=== PATIENT | male | born 1955 | race African-American/Black ===

== ENCOUNTER 2017-02-12 02:35 | Emergency (ER) | payer OTHER ==
[2017-02-12 03:02] VITALS: BP 188/80
== END 2017-02-12 03:25 | disposition left against medical advice (07) ==
LOC: ER 02:35
DX: Z53.9 Procedure and treatment not carried out, unspecified reason (principal); I10 Essential (primary) hypertension; R68.84 Jaw pain

== ENCOUNTER 2017-02-17 20:11 | Emergency (ER) | payer OTHER ==
[2017-02-17] MEDS ORDERED: HYDROCODONE/ACETAMINOPHEN 5-325 MG TABLET PO ONE (21:18)
[2017-02-17] MEDS ORDERED: AMOXICILLIN TRIHYDRATE 500 MG CAPSULE PO ONE (21:18)
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
[2017-02-17 22:14] VITALS: BP 169/73
== END 2017-02-17 21:30 | disposition home or self-care (01) ==
LOC: ER 20:11
DX: K05.10 Chronic gingivitis, plaque induced (principal); K13.79 Other lesions of oral mucosa; E78.00 Pure hypercholesterolemia, unspecified; I10 Essential (primary) hypertension; K21.9 Gastro-esophageal reflux disease without esophagitis
CPT/HCPCS: 99282

== ENCOUNTER 2017-02-22 01:58 | Emergency (ER) | payer OTHER ==
[2017-02-22] MEDS ORDERED: PROCHLORPERAZINE EDISYLATE INJ 10 MG/2 ML VIAL IV ONE (02:58)
[2017-02-22] MEDS ORDERED: KETOROLAC TROMETHAMINE INJ/PF 30 MG/1 ML SDV IV ONE (02:58)
[2017-02-22] MEDS ORDERED: DIPHENHYDRAMINE HCL 50 MG/ML VIAL IV ONE (02:58)
--- NOTE | 2017-02-22 03:40 | ER Document Report ---
ED General - General Chief Complaint: Jaw Pain Stated Complaint: JAW PAIN Time Seen by Provider: 02/22/17 02:12 Notes: Patient is a 62-year-old male with past medical history of uncontrolled essential hypertension who presents with 8 or more years of chronic nightly facial pain. Patient states that the pain becomes most intense at night particular when he tries to lay down to go to sleep. He does describe it as a severe, searing pain to the right side of his face with associated excess lacrimation of the right eye and occasional ptosis the right eye. He denies unilateral diaphoresis. He denies any focal neurologic deficits. Nothing seems to improve or worsen the pain. He does note that intermittently develops the symptoms during the day but they do become much worse at night. He has not seen a neurologist regarding this concern and has not followed with his primary care doctor regarding this concern. He does nothing is new or different tonight that prompted him to come to the emergency department other than the pain became so severe he could not tolerate it any longer. He was recently seen here in the emergency department and prescribed penicillin and narcotic pain medications which he states have not helped. TRAVEL OUTSIDE OF THE [place] IN LAST 30 DAYS: No - Related Data Allergies/Adverse Reactions: No Known Allergies Allergy (Verified 02/17/17 20:30) Past Medical History - General Information source: Patient - Social History Smoking Status: Current Every Day Smoker Chew tobacco use (# tins/day): No Frequency of alcohol use: Occasional Drug Abuse: None Lives with: Spouse/Significant other Family History: Arthritis, CAD, Hyperlipidemia, Hypertension, Malignancy, Thyroid Disfunction Patient has suicidal ideation: No Patient has homicidal ideation: No - Past Medical History Cardiac Medical History: Reports: Hx Hypercholesterolemia, Hx Hypertension Pulmonary Medical History: Reports: Hx COPD Renal/ Medical History: Denies: Hx Peritoneal Dialysis GI Medical History: Reports: Hx Gastroesophageal Reflux Disease Musculoskeltal Medical History: Reports Hx Arthritis Psychiatric Medical History: Reports: Hx Depression - Immunizations Immunizations up to date: Yes Hx Diphtheria, Pertussis, Tetanus Vaccination: Yes Hx Pneumococcal Vaccination: 09/24/13 Review of Systems - Review of Systems Notes: Constitutional: Negative for fever. HENT: Negative for sore throat. Eyes: Negative for visual changes. Cardiovascular: Negative for chest pain. Respiratory: Negative for shortness of breath. Gastrointestinal: Negative for abdominal pain, vomiting or diarrhea. Genitourinary: Negative for dysuria. Musculoskeletal: Negative for back pain. Skin: Negative for rash. Neurological: Positive for right-sided facial pain and headache 10 point ROS negative except as marked above and in HPI. Physical Exam - Vital signs Vitals: Temp Pulse Resp BP Pulse Ox 98.2 F 66 18 239/78 H 99 02/22/17 02:25 02/22/17 02:25 02/22/17 02:25 02/22/17 02:25 02/22/17 02:25 Interpretation: Hypertensive Notes: PHYSICAL EXAMINATION: GENERAL: Appears uncomfortable but in no acute distress HEAD: Atraumatic, normocephalic. EYES: Pupils equal round and reactive to light, extraocular movements intact, sclera anicteric, conjunctiva are normal. ENT: nares patent, oropharynx clear without exudates. Moist mucous membranes. NECK: Normal range of motion, supple without lymphadenopathy LUNGS: Breath sounds clear to auscultation bilaterally and equal. No wheezes rales or rhonchi. HEART: Regular rate and rhythm without murmurs ABDOMEN: Soft, nontender, normoactive bowel sounds. No guarding, no rebound. No masses appreciated. EXTREMITIES: Normal range of motion, no pitting or edema. No cyanosis. NEUROLOGICAL: Face symmetric. Tongue protrudes midline. Extraocular motions intact. Pupils are 2 mm and equally reactive. Normal speech, normal gait. 5 out of 5 strength in both the distal and proximal upper and lower extremities bilaterally. Sensation is grossly intact throughout. Finger to nose testing normal. Pronator drift normal. PSYCH: Normal mood, normal affect. SKIN: Warm, Dry, normal turgor, no rashes or lesions noted. Course - Re-evaluation Re-evalutation: 02/22/17 03:34 Patient presents with years of pain along the right face. Diagnostic differential includes cluster headaches versus possible trigeminal neuralgia. Patient does not have any clinical exam findings to suggest that this is dental related he does not any significant facial swelling. No buccal mucosal inflammation. Airway is patent. IV was placed and a migraine cocktail was administered patient had near complete resolution of his symptoms. I have encouraged the patient to follow-up with a neurologist at his earliest ability as I do believe he would benefit from being started on a medication such as carbamazepine. At this time will discharge with return precautions and follow- up recommendations. Verbal discharge instructions given a the bedside and opportunity for questions given. Medication warnings reviewed. Patient is in agreement with this plan and has verbalized understanding of return precautions and the need for primary care follow-up in the next 24-72 hours. - Vital Signs Vital signs: Temp Pulse Resp BP Pulse Ox 98.2 F 66 18 239/78 H 99 02/22/17 02:25 02/22/17 02:25 02/22/17 02:25 02/22/17 02:25 02/22/17 02:25 Discharge - Discharge Clinical Impression: Right facial pain, Essential hypertension Condition: Good Disposition: HOME, SELF-CARE Additional Instructions: You may have either trigeminal neuralgia or cluster headaches. Your clinical history appears to suggest most likely a trigeminal neuralgia. You had improvement with medications that we gave you here in the emergency department. You have been sent home with a medication called Fioricet that you could try again if he developed this pain. However, it is very important that you follow- up with a neurologist as you may require chronic medications to prevent recurrence of this pain. Return if you develop worsening of your pain, weakness , numbness, fever, persistent vomiting, or any other symptoms that are worrisome to you. Prescriptions: Butalb/Acetaminophen/Caffeine [Fioricet (50-325-40 mg) Tablet] 1 tab PO Q4HP PRN #30 tab PRN Reason:
[2017-02-22 04:29] VITALS: BP 186/70
== END 2017-02-22 04:29 | disposition home or self-care (01) ==
LOC: ER 01:58
DX: R51 Headache (principal); I10 Essential (primary) hypertension; R68.84 Jaw pain; F17.200 Nicotine dependence, unspecified, uncomplicated
CPT/HCPCS: 99283; 96374; 96375; J1200; J1885; J0780

== ENCOUNTER 2017-03-05 01:52 | Emergency (ER) | payer OTHER ==
[2017-03-05] MEDS ORDERED: HYDROMORPHONE HCL INJ/PF 2 MG/ML AMPULE IV ONE ×2 (02:12→03:12)
[2017-03-05] MEDS ORDERED: DIPHENHYDRAMINE HCL 50 MG/ML VIAL IV ONE (02:14)
[2017-03-05] MEDS ORDERED: PROCHLORPERAZINE EDISYLATE INJ 10 MG/2 ML VIAL IM ONE (02:15)
[2017-03-05] MEDS ORDERED: KETOROLAC TROMETHAMINE INJ/PF 30 MG/1 ML SDV IV ONE (02:15)
--- NOTE | 2017-03-05 02:18 | ER Document Report ---
ED General - General Chief Complaint: Headache, Worst Ever Stated Complaint: HEADACHE Time Seen by Provider: 03/05/17 02:07 Notes: Patient is a 62-year-old male who presents with complaint of a headache. Might go evaluate the patient he says the pain section of his head is more along the right side of his face. He has apparently been having this pain almost every night for the last 6-8 years. No associated fevers. He says only occur at night. He has been seen here several times in the past. He says that his doctors referring him to a neurologist but has not yet had an appointment. He comes in tonight because the pain is very severe tonight. He is very hypertensive in triage. He says he takes metoprolol in the mornings. He says he did take his dose of metoprolol. He denies any focal weakness or numbness into extremities. Denies any recent trauma. He denies previous history of CT scans of his head. Denies any vomiting. No photophobia. No other complaints at this time. He does says that the pain is only over the right side of his face and is in the same location that it always is. Again the pain only occurs at night. TRAVEL OUTSIDE OF THE [place] IN LAST 30 DAYS: No - Related Data Allergies/Adverse Reactions: No Known Allergies Allergy (Verified 02/17/17 20:30) Past Medical History - Social History Smoking Status: Unknown if Ever Smoked Frequency of alcohol use: None Drug Abuse: None Family History: Arthritis, CAD, Hyperlipidemia, Hypertension, Malignancy, Thyroid Disfunction - Past Medical History Cardiac Medical History: Reports: Hx Hypercholesterolemia, Hx Hypertension Pulmonary Medical History: Reports: Hx COPD Renal/ Medical History: Denies: Hx Peritoneal Dialysis GI Medical History: Reports: Hx Gastroesophageal Reflux Disease Musculoskeltal Medical History: Reports Hx Arthritis Psychiatric Medical History: Reports: Hx Depression - Immunizations Immunizations up to date: Yes Hx Diphtheria, Pertussis, Tetanus Vaccination: Yes Hx Pneumococcal Vaccination: 09/24/13 Review of Systems - Review of Systems Notes: My Normal Review Basic REVIEW OF SYSTEMS: CONSTITUTIONAL : Denies fever, chills, or sweats. Denies recent illness. EENT: Denies eye, ear, throat, or mouth pain or symptoms. Denies nasal or sinus congestion. CARDIOVASCULAR: Denies chest pain. RESPIRATORY: Denies cough, cold, or chest congestion. Denies shortness of breath, difficulty breathing, or wheezing. GASTROINTESTINAL: Denies abdominal pain. Denies nausea, vomiting, or diarrhea. MUSCULOSKELETAL: Denies neck or back pain or joint pain or swelling. SKIN: Denies rash or skin lesions. NEUROLOGICAL: Denies altered mental status or loss of consciousness. Has right sided facial.. Denies weakness or paralysis or loss of use of either side. Denies problems with gait or speech. Denies sensory or motor loss. ALL OTHER SYSTEMS REVIEWED AND NEGATIVE. Physical Exam - Vital signs Vitals: Resp BP Pulse Ox 14 242/91 H 97 03/05/17 02:11 03/05/17 02:11 03/05/17 02:11 - Notes Notes: General Appearance: Well nourished, alert, cooperative, no acute distress, moderate to severe obvious discomfort. Vitals: reviewed, See vital signs table. Head: Patient is very sensitive with any attempt of touching the right side of his face. Eyes: PERRL, EOMI, Conjuctiva clear Mouth: No decreasd moisture Throat: No tonsillar inflammation, No airway obstruction, No lymphadenopathy Neck: Supple, no neck tenderness, Lungs: No wheezing, No rales, No rhonci, No accessory muscle use, good air exchange bilaterally. Heart: Normal rate, Regular rythm, No murmur, no rub Abdomen: Normal BS, soft, No rigidity, No abdominal tenderness, No guarding, no rebound, no abdominal masses, no organomegaly Extremities: strength 5/5 in all extremities, good pulses in all extremities, no swelling or tenderness in the extremities, no edema. Skin: warm, dry, appropriate color, no rash Neuro: speech clear, oriented x 3, normal affect, responds appropriately to questions. Cranial nerves II through XII are intact. Distal sensation intact. Patient was all extremities without difficulty. Course - Re-evaluation Re-evalutation: 03/05/17 05:36 Patient's written chief complaint is of a headache however on exam patient actually has right-sided facial pain that is consistent with trigeminal neuralgia. I did review his records and as he stated he has had this pain many times in the past. It always occurs at night. Patient says he has never had a CT scan of his head by his primary care doctor want to arrange for 1 to be performed. I went ahead did obtain that tonight so he did not have to wait longer and just to evaluate being that he has his history of this recurrent pain. CT scan is negative. I do not suspect subarachnoid hemorrhage or cerebral aneurysm being that this pain is consistently occurs every time at night and is always over the right side of face. This would not be consistent with the history of a subarachnoid hemorrhage. Patient has no fevers or signs of infection. I did give her medications which have resolved his pain. Also given dose of hydralazine being that his blood pressure is very high upon arrival. I did review his previous visits and his blood pressure is always between 170s and 220 systolically. Patient is on metoprolol twice a day. I feel that the patient probably needs additional medication to help better control of his blood pressure as him always having a blood pressure that high is not safe. He has no other symptoms of source was blood pressure. He has no chest pain shortness of breath. There is no focal weakness or numbness. He does not need admission for control of his blood pressure being that he is currently a symptomatically. I have added hydralazine to his regimen. I informed him the importance of him following up with his primary care doctor to inform him of the addition of his medication for reevaluation. Also will add gabapentin. I informed him I am starting him on a very low dose and that this will eventually need to be slowly titrated up. Patient is to follow-up with his primary care doctor and to follow-up with the neurology referral as well. Patient encouraged to return to ER if he has severe headache, worsening facial pain, vomiting, chest pain, difficulty breathing, or any focal weakness or numbness. Patient agrees with plan will be discharged home. Dictation of this chart was performed using voice recognition software; therefore, there may be some unintended grammatical errors. - Vital Signs Vital signs: Temp Pulse Resp BP Pulse Ox 22 H 226/68 H 94 03/05/17 04:04 03/05/17 04:21 03/05/17 04:21 Discharge - Discharge Clinical Impression: Facial pain Hypertension Qualifiers: Hypertension type: unspecified Qualified Code(s): I10 - Essential (primary) hypertension Additional Instructions: I suspect that you probably have Trigeminal neuralgia due to the recurrence of your right-sided facial pain and the location of it. This is an irritation of the nerve on the right side of your face. I will start you on a low dose of a medication called Gabapentin. This sometimes will help but it needs to be slowly titrated up. I have started you an a low dose, but you will need to follow up with your doctor to have the dose titrated up safely. When you see the neurologist he may continue this medication or switch you to a different medication that they may feel will work better for you. I have also noticed that over your last several visits your blood pressure is always very high and not well controlled. I am adding a new blood pressure medication to your regimen called Hydralazine. Please follow up with your doctor for reevaluation within 1 week and review with them these new medications I have added. Please return to the ER if you have recurrent worsening facial pain, severe headaches, vomiting, fevers weakness in your arms or legs, chest pain, difficulty breathing , or if you feel unwell. Prescriptions: Gabapentin 100 mg PO TID #45 capsule Hydralazine HCl 25 mg PO BID #30 tablet
--- NOTE | 2017-03-05 03:13 | RADIOLOGY REPORT (SQ) ---
EXAM DESCRIPTION: CT HEAD WITHOUT CLINICAL HISTORY: 62 years Male, headache, HTN COMPARISON: None. TECHNIQUE: This exam was performed according to our departmental dose-optimization program, which includes automated exposure control, adjustment of the mA and/or kV according to patient size and/or use of iterative reconstruction technique. Limitation: Positioning. FINDINGS: Mild cerebral volume loss. No evidence of mass, mass effect, or midline shift. Dural calcification and prominent tentorium cerebelli. Oblique positioning. No significant hemorrhage or infarct. Extra-axial structures appear otherwise grossly intact. IMPRESSION: No acute findings. Limitation.
[2017-03-05] MEDS ORDERED: HYDRALAZINE HCL INJ/PF 20 MG/1 ML SDV IV ONE (04:02)
[2017-03-05 05:56] VITALS: BP 168/83
== END 2017-03-05 05:53 | disposition home or self-care (01) ==
LOC: ER 01:52
DX: R51 Headache (principal); I10 Essential (primary) hypertension; E78.00 Pure hypercholesterolemia, unspecified; J44.9 Chronic obstructive pulmonary disease, unspecified; K21.9 Gastro-esophageal reflux disease without esophagitis
CPT/HCPCS: 99284; 96372; 96374; 96375; 70450; J1200; J0360; J1885; J1170; J0780

== ENCOUNTER → 2017-05-12 | Outpatient (CLI) | payer OTHER ==
--- NOTE | 2017-05-12 12:09 | RADIOLOGY REPORT (SQ) ---
EXAM DESCRIPTION: CHEST PA/LAT COMPLETED DATE/TIME: 05/12/2017 10:32 am REASON FOR STUDY: COUGH R05 COUGH COMPARISON: 03/27/2015 NUMBER OF VIEWS: Two view. TECHNIQUE: Frontal and lateral radiographic views of the chest acquired. LIMITATIONS: None. FINDINGS: LUNGS AND PLEURA: No opacities, masses or pneumothorax. No pleural effusion. Attenuated bl ood vessels and flattened gracieal-diaphragms. MEDIASTINUM AND HILAR STRUCTURES: No masses. No contour abnormalities. HEART AND VASCULAR STRUCTURES: Heart normal in size and contour. No evidence for failure. BONES: No acute findings. HARDWARE: None in the chest. OTHER: No other significant finding. IMPRESSION: COPD. NO ACUTE RADIOGRAPHIC FINDING IN THE CHEST. TECHNICAL DOCUMENTATION: JOB ID: [id number] [employer]- All Rights Reserved
== END ==
LOC: RAD 09:53
DX: R05 Cough (principal)
CPT/HCPCS: 71046

== ENCOUNTER → 2017-05-15 | Outpatient (CLI) | payer OTHER ==
[2017-05-15 11:08] LABS: ABSOLUTE EOSINOPHILS # (AUTO) 0.1 10^3/uL (0.0-0.6); ABSOLUTE LYMPHOCYTES (AUTO) 2.3 10^3/uL (0.5-4.7); ABSOLUTE MONOCYTES (AUTO) 0.6 10^3/uL (0.1-1.4); ABSOLUTE NEUT (AUTO) 3.1 10^3/uL (1.7-8.2); BASOPHILS % (AUTO) 0.8 % (0-2); EOSINOPHILS % (AUTO) 1.9 % (0-6); HEMOGLOBIN 14.2 g/dL (13.5-17.0); LYMPHOCYTES % (AUTO) 37.8 % (13-45); MEAN CORPUSCULAR HEMOGLOBIN 32.3 pg (27.0-33.4); MEAN CORPUSCULAR HGB CONC 33.9 g/dL (32.0-36.0); MEAN CORPUSCULAR VOLUME 95 fl (80-97); MONOCYTES % (AUTO) 9.1 % (3-13); PLATELET COUNT 225 10^3/uL (150-450); RED BLOOD COUNT 4.41 10^6/uL (4.35-5.55); RED CELL DISTRIBUTION WIDTH 13.8 % (11.5-14.0); SEGMENTED NEUTROPHILS % (AUTO) 50.4 % (42-78); TOTAL CELLS COUNTED % (AUTO) 100 %; WHITE BLOOD COUNT 6.1 10^3/uL (4.0-10.5)
[2017-05-15 11:50] LABS: ERYTHROCYTE SEDIMENTATION RATE 31 mm/hr (0-20)
[2017-05-15 11:56] LABS: ALANINE AMINOTRANSFERASE 20 U/L (21-72); ALBUMIN 4.3 g/dL (3.5-5.0); ALKALINE PHOSPHATASE 78 U/L (38-126); ANION GAP 9 (5-19); ASPARTATE AMINO TRANSFERASE 31 U/L (17-59); BILIRUBIN,DIRECT 0.2 mg/dL (0.0-0.4); BILIRUBIN,TOTAL 0.6 mg/dL (0.2-1.3); BLOOD UREA NITROGEN 12 mg/dL (7-20); CALCIUM 9.5 mg/dL (8.4-10.2); CARBON DIOXIDE 28 mmol/L (22-30); CHLORIDE 107 mmol/L (98-107); CHOLESTEROL 189.32 mg/dL (0-200); GLUCOSE 79 mg/dL (75-110); POTASSIUM 4.8 mmol/L (3.6-5.0); SODIUM 144.1 mmol/L (137-145); TOTAL PROTEIN 7.3 g/dL (6.3-8.2); TRIGLYCERIDES 39 mg/dL (<150)
[2017-05-15 12:07] LABS: DIRECT LDL 136 mg/dL (<100)
== END ==
LOC: CCC 10:19
DX: G50.1 Atypical facial pain (principal)
CPT/HCPCS: 36415; 80053; 80061; 83036; 84443; 85025; 85652; 86140

== ENCOUNTER → 2018-03-22 | Outpatient (CLI) | payer OTHER ==
--- NOTE | 2018-03-22 16:31 | RADIOLOGY REPORT (SQ) ---
EXAM DESCRIPTION: MRI HEAD COMBO COMPLETED DATE/TIME: 03/22/2018 4:21 pm REASON FOR STUDY: G50.0 TRIGEMINAL NEURALGIA G50.0 TRIGEMINAL NEURALGIA COMPARISON: None. TECHNIQUE: Multiplanar imaging includes noncontrasted T1, T2, FLAIR, diffusion with ADC map and post gadolinium contrast T1 sequences. Additional thin sections through the brainstem and Meckel's cave. Images stored on PACS. CONTRAST TYPE AND DOSE: 15 mL Dotarem. RENAL FUNCTION: GFR > 60. LIMITATIONS: Motion. FINDINGS: ANATOMY: No anomalies. Normal vascular flow voids. Pituitary fossa normal. CSF SPACES: Normal in size and contour. No hemorrhage. CEREBRUM: Sulci and gyri normal in size and contour. Normal white matter signal on FLAIR imaging. No evidence of hemorrhage, mass, or extraaxial fluid collection. No abnormal enhancement post contrast. POSTERIOR FOSSA: No signal alteration. No hemorrhage. No edema, masses, or mass effect. Internal mickie tory canals, cerebellopontine angles, mastoids normal. No enhancing lesions. No abnormal enhancement post contrast. DIFFUSION IMAGING: Negative for acute or subacute infarction. ORBITS: No masses. Globes normal. PARANASAL SINUSES: No fluid levels. Mucosa normal. OTHER: No other significant finding. IMPRESSION: No acute findings in the brain. EVIDENCE OF ACUTE STROKE: NO. TECHNICAL DOCUMENTATION: JOB ID: [id number] [employer]- All Rights Reserved Reading location - IP/workstation name: [email or web address]
== END ==
LOC: RAD 14:59
DX: G50.0 Trigeminal neuralgia (principal)
CPT/HCPCS: 82565; 70553; A9576

== ENCOUNTER 2019-03-15 09:10 | Emergency (ER) | payer OTHER ==
--- NOTE | 2019-03-15 09:43 | ER Document Report ---
HPI - HPI Patient complains to provider of: Right foot injury Time Seen by Provider: 03/15/19 09:38 Onset/Duration: Persistent Quality of pain: Achy Pain Level: 3 Context: Patient reports moving furniture 3 days ago and having a piece of equipment fall landing on his foot while he was wearing shoes. Patient complains of pain with ambulation. Associated Symptoms: Other - Right foot pain Exacerbated by: Standing, Movement, Walking Relieved by: Sitting, Remaining still Similar symptoms previously: No Recently seen / treated by doctor: No - ROS ROS below otherwise negative: Yes Systems Reviewed and Negative: Yes All other systems reviewed and negative - NEURO Neurology: DENIES: Weakness - GASTROINTESTINAL Gastrointestinal: DENIES: Nausea, Patient vomiting - MUSCULOSKELETAL Musculoskeletal: REPORTS: Extremity pain. DENIES: Swelling - DERM Skin Color: Normal Skin Problems: None Past Medical History - General Information source: Patient - Social History Smoking Status: Current Every Day Smoker Frequency of alcohol use: None Drug Abuse: None Occupation: Moving and storage Lives with: Family Family History: Arthritis, CAD, Hyperlipidemia, Hypertension, Malignancy, Thyroid Disfunction - Past Medical History Cardiac Medical History: Reports: Hx Hypercholesterolemia, Hx Hypertension Pulmonary Medical History: Reports: Hx COPD Renal/ Medical History: Denies: Hx Peritoneal Dialysis GI Medical History: Reports: Hx Gastroesophageal Reflux Disease Musculoskeletal Medical History: Reports Hx Arthritis Psychiatric Medical History: Reports: Hx Depression Surgical Hx: Negative - Immunizations Immunizations up to date: Yes Hx Diphtheria, Pertussis, Tetanus Vaccination: Yes Hx Pneumococcal Vaccination: 09/24/13 Vertical Provider Document - CONSTITUTIONAL Agree With Documented VS: Yes Exam Limitations: No Limitations General Appearance: WD/WN, No Apparent Distress - INFECTION CONTROL TRAVEL OUTSIDE OF THE [place] IN LAST 30 DAYS: No - HEENT HEENT: Atraumatic, Normocephalic - NECK Neck: Normal Inspection - RESPIRATORY Respiratory: No Respiratory Distress - CARDIOVASCULAR Pulses: Normal: Dorsalis pedis - MUSCULOSKELETAL/EXTREMETIES Musculoskeletal/Extremeties: MAEW, FROM, Tender - Tenderness to right great toe and first metatarsal, no obvious edema or deformity - NEURO Level of Consciousness: Awake, Alert, Appropriate Motor/Sensory: No Motor Deficit, No Sensory Deficit - DERM Integumentary: Warm, Dry, No Rash Course - Re-evaluation Re-evalutation: 03/15/19 09:43 Offered patient pain medication, patient declines as he took pain medicine at home prior to arrival - Vital Signs Vital signs: Temp Pulse Resp BP Pulse Ox 51 L 18 163/69 H 98 03/15/19 09:16 03/15/19 09:16 03/15/19 09:16 03/15/19 09:16 - Diagnostic Test Radiology reviewed: Pending, Image reviewed Procedures - Immobilization Right Foot Pre-Proc Neuro Vasc Exam: Normal Immobilizer type: Post-op shoe Performed by: PCT Post-Proc Neuro Vasc Exam: Normal Alignment checked and good: Yes Discharge - Discharge Clinical Impression: Injury of toe on right foot Qualifiers: Encounter type: initial encounter Qualified Code(s): S99.921A - Unspecified injury of right foot, initial encounter Condition: Stable Disposition: HOME, SELF-CARE Instructions: Use of Crutches ([facility]), Ice & Elevation ([facility]), Post-Op Shoe ([facility]) Additional Instructions: Return immediately for any new or worsening symptoms Followup with your primary care provider, call tomorrow to make a followup appointment Follow-up with orthopedics for further evaluation, call today to make a follow- up appointment Weightbearing as tolerated Forms: Return to Work Referrals: [facility] [NO LOCAL MD] - Follow up as needed RINA VILLAGRAN MD [ACTIVE PROVISIONAL STAFF] - Follow up as needed [facility] [Provider Group] - Follow up as needed [facility] [Provider Group] - Follow up as needed
--- NOTE | 2019-03-15 11:34 | RADIOLOGY REPORT (SQ) ---
EXAM DESCRIPTION: FOOT RIGHT COMPLETE COMPLETED DATE/TIME: 03/15/2019 10:12 am REASON FOR STUDY: crush injury, R gr toe, 1st MT COMPARISON: None. NUMBER OF VIEWS: Three views. TECHNIQUE: AP, lateral and oblique radiographic images acquired of the right foot. LIMITATIONS: None. FINDINGS: MINERALIZATION: Normal. BONES: No fracture. JOINTS: The normal tarsometatarsal alignment is preserved. There is osteoarthrosis of the 1st MTP an d IP joints. SOFT TISSUES: No swelling or radiopaque foreign body. OTHER: No other finding. 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 No acute osseous abnormality of the right foot. TECHNICAL DOCUMENTATION: JOB ID: [id number] [employer]- All Rights Reserved Reading location - IP/workstation name: [email or web address]
[2019-03-15 11:46] VITALS: BP 160/65
== END 2019-03-15 11:45 | disposition home or self-care (01) ==
LOC: ER 09:10
DX: S99.921A Unspecified injury of right foot, initial encounter (principal); W20.8XXA Other cause of strike by thrown, projected or falling object, initial encounter; Y93.89 Activity, other specified; I10 Essential (primary) hypertension; J44.9 Chronic obstructive pulmonary disease, unspecified; F17.200 Nicotine dependence, unspecified, uncomplicated
CPT/HCPCS: 99283